=== PATIENT | female | born 1985 | race Caucasian/White ===

== ENCOUNTER 2018-07-21 09:49 | Emergency (ER) | payer OTHER ==
[2018-07-21 10:09] VITALS: BP 128/92; PULSE 55; TEMP 98.8
--- NOTE | 2018-07-21 10:27 | PDOC ---
History of Present Illness - General Chief Complaint: Pain Stated Complaint: LEFT KNEE PAIN Time Seen by Provider: 07/21/18 10:06 - History of Present Illness Initial Comments: 07/21/18 12:12 Chief complaint: Left knee pain History of present illness: Patient slipped on a wet floor approximately 3 weeks ago, injuring her left knee. It remains painful, swollen, and bruised. She is unable to fully bear weight and is using crutches. She was seen initially at another hospital, x-rays were reportedly negative, but she has not followed up as directed with an clutch specialist. Review of systems: Denies any other injuries or pain. 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 Pancreatitis. Anemia. Thrombocytopenia. Prior head injury and subsequent "coma" Breast reduction. Alcohol and drug problems. 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 Active and without disability except for her knee injury. No anxiety or depression Family history: Reviewed and noncontributory including early coronary artery disease, metabolic diseases including diabetes, cancer Physical exam: Alert and oriented well-developed well-nourished no acute distress cooperative Afebrile, vital signs normal No pallor or icterus No other sign of trauma except to the left knee. There is point tenderness over the lateral tibial plateau, with extensive ecchymoses that appear old. There is no swelling or effusion. There is no appreciable deformity. Extension is full, but the patient refuses to fully flex due to pain. Distal pulses full. No distal sensory or motor deficits. No sign of trauma to the thigh or distal calf Impression: Possible occult tibial plateau fracture, considering the extent of pain and bruising. Examination does not show a ligament injury. Plan: X-ray, analgesics, and further evaluation depending on results. Orthopedist referral. Past History - Past Medical History Allergies/Adverse Reactions: Allergies Allergy/AdvReac Type Severity Reaction Status Date / Time Penicillins Allergy Intermediate Rash Verified 07/21/18 09:51 Home Medications: Ambulatory Orders Ferrous Sulfate [Iron] 325 mg PO DAILY 07/21/18 Folic Acid 1 mg PO DAILY 07/21/18 Gabapentin 800 mg PO QID 07/21/18 Oxycodone HCl/Acetaminophen [Percocet 10-325 mg Tablet] 1 each PO Q4HWA PRN #10 tablet MDD 4 07/21/18 Quetiapine Fumarate [Seroquel] 100 tab PO HS 07/21/18 hydrOXYzine PAMOATE [Vistaril -] 50 mg PO QID 07/21/18 Anemia: Yes Asthma: No Cancer: No Cardiac Disorders: No CVA: No COPD: No CHF: No Dementia: No Diabetes: No GI Disorders: Yes (GERD) Disorders: No HTN: No Hypercholesterolemia: No Kidney Stones: Yes Liver Disease: No Seizures: No Thyroid Disease: No Other medical history: HEAD INJURY - Surgical History Abdominal Surgery: Yes (2.5 years AGO FOR SMA Dr. Kolb) Appendectomy: No Cardiac Surgery: No Cholecystectomy: No Lung Surgery: No Neurologic Surgery: No Orthopedic Surgery: No - Immunization History Td Vaccination: Yes Immunization Up to Date: No - Suicide/Smoking/Psychosocial Hx Smoking Status: No Smoking History: Never smoked Have you smoked in the past 12 months: No Number of Cigarettes Smoked Daily: 0 Information on smoking cessation initiated: No Hx Alcohol Use: No Drug/Substance Use Hx: No Substance Use Type: None Hx Substance Use Treatment: No *Physical Exam - Vital Signs Last Vital Signs Temp Pulse Resp BP Pulse Ox 98.8 F 55 L 16 128/92 98 07/21/18 09:50 07/21/18 09:50 07/21/18 09:50 07/21/18 09:50 07/21/18 09:50 Moderate Sedation - Procedure Monitoring Vital Signs: Procedure Monitoring Vital Signs Temperature 98.8 F 07/21/18 09:50 Pulse Rate 55 L 07/21/18 09:50 Respiratory Rate 16 07/21/18 09:50 Blood Pressure 128/92 07/21/18 09:50 O2 Sat by Pulse Oximetry (%) 98 07/21/18 09:50 ED Treatment Course - LABORATORY CBC & Chemistry Diagram: 07/21/18 11:10 07/21/18 11:10 Medical Decision Making - Medical Decision Making 07/21/18 16:43 X-rays negative for fracture Ultrasound negative for DVT or raines's cyst Patient seen by Dr. Thomas in the emergency room, orthopedic consult. He examine the knee and feels that it is a traumatic bursitis with bleeding into the bursa. He feels infection is unlikely, but close observation is warranted. He will see the patient on Tuesday for follow-up. Robb bandage was applied. Knee immobilizer was placed and the patient was more comfortable. There was no distal numbness or tingling and pulses were full, with good capillary refill in the foot Crutches and nonweightbearing until orthopedic follow-up. Discharged adequately ambulatory with mother to see Dr. Thomas on Tuesday as directed or return to emergency room if swelling becomes more pronounced or erythema or bruising migrate upward down the leg. *DC/Admit/Observation/Transfer Diagnosis at time of Disposition: Knee sprain Qualifiers: Encounter type: initial encounter Involved ligament of knee: unspecified ligament Laterality: left Qualified Code(s): S83.92XA - Sprain of unspecified site of left knee, initial encounter - Discharge Dispostion Disposition: HOME Condition at time of disposition: Improved Decision to Admit order: No - Prescriptions Prescriptions: Oxycodone HCl/Acetaminophen [Percocet 10-325 mg Tablet] 1 each PO Q4HWA PRN #10 tablet MDD 4 PRN Reason: Severe Pain - Referrals - Patient Instructions Printed Discharge Instructions: How to Use an Elastic Bandage-Knee Sprain, DI for Knee Sprain, How to Use a Knee Immobilizer - Post Discharge Activity Forms/Work/School Notes: Back to Work
[2018-07-21] MEDS ORDERED: KETOROLAC TROMETHAMINE 60 MG/2 ML VIAL IM ONE (10:42)
[2018-07-21] MEDS ORDERED: KETOROLAC TROMETHAMINE 60 MG/2 ML VIAL ONE (10:48)
[2018-07-21 11:48] LABS: BASO % 0.3 % (0-2.0); EOS % 1.9 % (0-4.5); HEMATOCRIT 41.9 % (32.4-45.2); HEMOGLOBIN 13.1 GM/dl (10.7-15.3); LYMPH % 25.3 % (8-40); MCH 26.8 pg (25.7-33.7); MCHC 31.4 g/dl (32.0-36.0); MEAN CELL VOLUME 85.4 fl (80-96); MEAN PLT VOLUME 8.4 fl (7.5-11.1); MONO % 5.8 % (3.8-10.2); NEUT % 66.7 % (42.8-82.8); PLATELET COUNT 126 K/MM3 (134-434); RBC 4.91 M/mm3 (3.60-5.2); RDW 14.7 % (11.6-15.6)
[2018-07-21 11:58] LABS: ALBUMIN 4.4 g/dl (3.4-5.0); ALK PHOS 62 U/L (45-117); ANION GAP 7 MMOL/L (8-16); BILIRUBIN,TOTAL 0.7 mg/dl (0.2-1); BLOOD UREA NITROGEN 20 mg/dl (7-18); CALCIUM 9.3 mg/dl (8.5-10); CHLORIDE 106 mmol/L (98-107); CO2 23 mmol/L (21-32); CREATININE 0.9 mg/dl (0.55-1.3); GLUCOSE,RANDOM 84 mg/dl (74-106); POTASSIUM 4.6 mmol/L (3.5-5.1); SGOT/AST 28 U/L (15-37); SGPT/ALT 26 U/L (13-61); SODIUM 136 mmol/L (136-145); TOT PROT 7.5 g/dl (6.4-8.2)
[2018-07-21 12:58] LABS: LIPASE 77 U/L (73-393)
--- NOTE | 2018-07-21 18:44 | PDOC ---
Patient Follow-up (Call Back) - Post ED Follow - Up Condition at time of discharge: Improved Disposition at time of original discharge: HOME - Disposition Additional Instructions/Notes: Patient phoned and states that her prescription was sent to the wrong pharmacy Called [facility] in [place] and spoke to the pharmacist Nico who agreed to cancel the prescription and the new prescription was sent to [facility] for Percocet 5/325 15 tabs.
--- NOTE | 2018-07-24 08:43 | CON.ORTH ---
Consult Consult Specialty:: orthopedics Reason for Consultation:: knee pain and swelling - History of Present Illness History of Present Illness: Wilma is a 33-year-old female who presented to the emergency department complaining of increasing knee pain. 3 weeks ago, she had slipped, injuring the left knee. She was seen in another emergency facility where x-rays were taken which she reports were negative. Today, she comes in with increased pain and swelling. The pain and swelling are anterolateral. She denies any radiating pain, numbness or tingling. She denies any eloisa giving way. She does have pain with ambulation. She did not obtain any follow-up after her last ER visit. She also denies any fevers, chills. - History Source History Provided By: Patient, Medical Record Limitations to Obtaining History: No Limitations - Past Medical History [employer]: Yes: Seizure Pulmonary: Yes: Pneumonia, Other (EFFUSION IN THE PAST/POSSIBLE ATELECTASIS) Gastrointestinal: Yes: GERD, Hiatal Hernia, Pancreatitis, Other (ARCUATE LIGAMENT SYNDROME) Renal/: Yes: Renal Calculi ...LMP: 03/06/15 Infectious Disease: Yes: Other (SEPSIS FROM HEMATOMA OF THE LEFT HAND AFTER I&D AT [facility] 7 WEEKS. HAD PNEUMONAI AND SEPSIS WITH INDUCED COMA ETC.. ) Psych: Yes: Other (FROM [facility] COMPUTER DISCHARGE SUMMARY DX: ALCOHOLIC WITHDRAWAL ) - Alcohol/Substance Use Hx Alcohol Use: No - Smoking History Smoking history: Never smoked Have you smoked in the past 12 months: No Aproximately how many cigarettes per day: 0 - Social History Usual Living Arrangement: With Parent Home Medications - Allergies Allergies/Adverse Reactions: Allergies Allergy/AdvReac Type Severity Reaction Status Date / Time Penicillins Allergy Intermediate Rash Verified 07/21/18 09:51 - Home Medications Home Medications: Ambulatory Orders Ferrous Sulfate [Iron] 325 mg PO DAILY 07/21/18 Folic Acid 1 mg PO DAILY 07/21/18 Gabapentin 800 mg PO QID 07/21/18 Oxycodone HCl/Acetaminophen [Percocet 5-325 mg Tablet] 1 - 2 tab PO Q4H PRN #15 tablet MDD 6 07/21/18 Quetiapine Fumarate [Seroquel] 100 tab PO HS 07/21/18 hydrOXYzine PAMOATE [Vistaril -] 50 mg PO QID 03/01/19 Review of Systems - Review of Systems Constitutional: denies: Chills, Diaphoresis, Fever Physical Exam for Ortho Vital Signs: Vital Signs Temperature 98.8 F 07/21/18 09:50 Pulse Rate 55 L 07/21/18 09:50 Respiratory Rate 16 07/21/18 09:50 Blood Pressure 128/92 07/21/18 09:50 O2 Sat by Pulse Oximetry (%) 98 07/21/18 09:50 Constitutional: Yes: Well Nourished, No Distress, Calm Labs: CBC, BMP 07/21/18 11:10 07/21/18 11:10 - Lower Extremity Knee: Yes: Left, Ecchymosis, Swelling (anterolaterally over the bursa), Other ( Range of motion 5 to 100.). No: Abrasion, Deformity, Erythema - Affected Extremity Motor Strength: 5/5: Right Leg Peripheral Pulses WNL: Yes Neuro/Vascular Assessment: Yes: Normal Sensation Imaging - Results X-ray: Report Reviewed, Image Reviewed (No acute pathology.) Problem List - Problems (1) Knee sprain Assessment/Plan: I discussed today's findings with Wilma. Her exam today is suggestive of a traumatic bursitis. There is no evidence for infection at this time. She will use compression, protected weightbearing and rest. I would like to examine her in the office next week. We may consider MRI to evaluate for the extent of damage caused by her previous fall. Code(s): S83.90XA - SPRAIN OF UNSPECIFIED SITE OF UNSPECIFIED KNEE, INIT ENCNTR Qualifiers: Encounter type: initial encounter Involved ligament of knee: other ligament Laterality: left Qualified Code(s): S83.8X2A - Sprain of other specified parts of left knee, initial encounter
== END 2018-07-21 16:48 | disposition home or self-care (01) ==
LOC: FER 09:49
PROC: 2W3RX1Z Immobilization of Left Lower Leg using Splint (ICD-10-PCS; principal; 2018-07-21)
PROC: 3E0233Z Introduction of Anti-inflammatory into Muscle, Percutaneous Approach (ICD-10-PCS; 2018-07-21)
DX: S83.92XA Sprain of unspecified site of left knee, initial encounter (principal); X58.XXXA Exposure to other specified factors, initial encounter; Y93.89 Activity, other specified; Y92.89 Other specified places as the place of occurrence of the external cause
CPT/HCPCS: 29515; 36415; 73562-TC-LT-FY; 80053; 82150; 83690; 84703; 85025; 93971-TC; 96372; 99283-25

== ENCOUNTER 2018-09-05 11:06 | Emergency (ER) | payer SELFPAY ==
[2018-09-05 11:10] VITALS: BP 116/79; PULSE 88; TEMP 98.4; BMI 21.2
[2018-09-05] MEDS ORDERED: KETOROLAC TROMETHAMINE 60 MG/2 ML VIAL IM ONE (11:48)
[2018-09-05] MEDS ORDERED: KETOROLAC TROMETHAMINE 60 MG/2 ML VIAL ONE (11:51)
[2018-09-05] MEDS ORDERED: GABAPENTIN 300 MG CAPSULE (FP) PO ONE (12:48)
[2018-09-05] MEDS ORDERED: predniSONE 20 MG TABLET (UD) PO ONE (12:48)
--- NOTE | 2018-09-05 12:53 | PDOC ---
History of Present Illness <Erlin Gupta - Last Filed: 09/05/18 13:50> - History of Present Illness Initial Comments: 09/05/18 12:49 33f with pmh of sma repair and alcohol abuse and various psych disorders in the past presents to the ed for b/l lower extremity pain since 2am this morning. The pain is localized over the dorsal aspect of both legs. She's able to stand but the pain makes it difficult. \\She states that her legs a tender to the touch. She took an oxycodon this morning which didn't help. She's usually on gabapentin for "anxiety" The patient states that she fell on July 21 and has been wearing a knee immobilizer since then. Denies swelling, rash recent trauma. 09/05/18 14:13 Denies back pain. Patient sitting at a 90 degree angle. <William Estes - Last Filed: 09/05/18 14:23> - General Chief Complaint: Pain, Acute Stated Complaint: BILATERAL KNEE PAIN Time Seen by Provider: 09/05/18 11:25 Past History <Erlin Gupta - Last Filed: 09/05/18 13:50> - Past Medical History Anemia: Yes Asthma: No Cancer: No Cardiac Disorders: No CVA: No COPD: No CHF: No Dementia: No Diabetes: No GI Disorders: Yes (GERD) Disorders: No HTN: No Hypercholesterolemia: No Kidney Stones: Yes Liver Disease: No Seizures: No Thyroid Disease: No - Surgical History Abdominal Surgery: Yes (2.5 years AGO FOR SMA Dr. Kolb) Appendectomy: No Cardiac Surgery: No Cholecystectomy: No Lung Surgery: No Neurologic Surgery: No Orthopedic Surgery: No - Immunization History Td Vaccination: Yes Immunization Up to Date: No - Suicide/Smoking/Psychosocial Hx Smoking Status: No Smoking History: Never smoked Have you smoked in the past 12 months: No Number of Cigarettes Smoked Daily: 0 Hx Alcohol Use: No Drug/Substance Use Hx: No Substance Use Type: None Hx Substance Use Treatment: No <William Estes - Last Filed: 09/05/18 14:23> - Past Medical History Allergies/Adverse Reactions: Allergies Allergy/AdvReac Type Severity Reaction Status Date / Time Penicillins Allergy Intermediate Rash Verified 09/05/18 11:58 Home Medications: Ambulatory Orders Ferrous Sulfate [Iron] 325 mg PO DAILY 07/21/18 Folic Acid 1 mg PO DAILY 07/21/18 Quetiapine Fumarate [Seroquel] 100 tab PO HS 07/21/18 hydrOXYzine PAMOATE [Vistaril -] 50 mg PO QID 07/21/18 Gabapentin 800 mg PO QID #60 tablet 09/05/18 Oxycodone HCl/Acetaminophen [Percocet 5-325 mg Tablet] 1 - 2 tab PO TID PRN #15 tablet MDD 6 tabs 09/05/18 Prednisone [Prednisone 50 MG TABLETS] 50 mg PO DAILY #6 tablet 09/05/18 Review of Systems - Review of Systems Able to Perform ROS?: Yes Is the patient limited Indonesian proficient: No Constitutional: No: Symptoms Reported HEENTM: No: Symptoms Reported Respiratory: No: Symptoms reported Cardiac (ROS): No: Symptoms Reported ABD/GI: No: Symptoms Reported Musculoskeletal: Yes: See HPI Integumentary: No: Symptoms Reported Neurological: No: Symptoms reported All Other Systems: Reviewed and Negative <William Estes - Last Filed: 09/05/18 14:23> *Physical Exam - Vital Signs Last Vital Signs Temp Pulse Resp BP Pulse Ox 98.4 F 88 18 116/79 98 09/05/18 11:06 09/05/18 11:06 09/05/18 11:06 09/05/18 11:06 09/05/18 11:06 <Erlin Gupta - Last Filed: 09/05/18 13:50> - Vital Signs Last Vital Signs Temp Pulse Resp BP Pulse Ox 98.4 F 88 18 116/79 98 09/05/18 11:06 09/05/18 11:06 09/05/18 11:06 09/05/18 11:06 09/05/18 11:06 - Physical Exam General Appearance: Yes: Nourished, Appropriately Dressed. No: Apparent Distress HEENT: positive: EOMI, DEVYN, Normal ENT Inspection Respiratory/Chest: positive: Lungs Clear, Normal Breath Sounds. negative: Chest Tender, Respiratory Distress Cardiovascular: positive: Regular Rhythm, Regular Rate, S1, S2 Gastrointestinal/Abdominal: positive: Normal Bowel Sounds, Soft Musculoskeletal: positive: Other (No back pain. ) Extremity: positive: Other (Variuous round, scaly concentric squamous lesions b/ l from the legs to the feet. No evidence pustules or cellulitis. ) <William Estes - Last Filed: 09/05/18 14:23> ED Treatment Course - Medications Given in the ED: ED Medications Discontinued Medications Generic Name Dose Route Start Last Admin Trade Name Freq PRN Reason Stop Dose Admin Gabapentin 600 mg 09/05/18 12:48 09/05/18 12:59 Neurontin - PO 09/05/18 12:49 600 mg ONCE ONE Administration Oxycodone/Acetaminophen 1 combo 09/05/18 11:48 09/05/18 11:53 Percocet 5/325 - PO 09/05/18 11:49 1 combo ONCE ONE Administration Oxycodone/Acetaminophen 1 combo 09/05/18 12:48 09/05/18 12:59 Percocet 5/325 - PO 09/05/18 12:49 1 combo ONCE ONE Administration Prednisone 60 mg 09/05/18 12:48 09/05/18 12:59 Deltasone - PO 09/05/18 12:49 60 mg ONCE ONE Administration <Erlin Gupta - Last Filed: 09/05/18 13:50> - Medications Given in the ED: ED Medications Discontinued Medications Generic Name Dose Route Start Last Admin Trade Name Freq PRN Reason Stop Dose Admin Oxycodone/Acetaminophen 1 combo 09/05/18 11:48 09/05/18 11:53 Percocet 5/325 - PO 09/05/18 11:49 1 combo ONCE ONE Administration <William Estes - Last Filed: 09/05/18 14:23> Medical Decision Making - Medical Decision Making 09/05/18 14:17 Due to the b/l presentation of the symptoms, (bilateral, no back pain, only tender over the dorsal aspect of the legs) we have a low suspicion for zoster, transverse myelitis, discitis. This is possibly related to the multiple previous psych visits ([facility]?) Will treat pain with the patient's dose of gabapentin, toradol and percocet and reassess. Patient fells better and ambulates without pain. Ok to discharge with follow up. <William Estes - Last Filed: 09/05/18 14:23> *DC/Admit/Observation/Transfer <Erlin Gupta - Last Filed: 09/05/18 13:50> <William Estes - Last Filed: 09/05/18 14:23> Diagnosis at time of Disposition: Lumbar radiculopathy, acute - Discharge Dispostion Condition at time of disposition: Stable - Prescriptions Prescriptions: Gabapentin 800 mg PO QID #60 tablet Oxycodone HCl/Acetaminophen [Percocet 5-325 mg Tablet] 1 - 2 tab PO TID PRN #15 tablet MDD 6 tabs PRN Reason: Severe Pain Prednisone [Prednisone 50 MG TABLETS] 50 mg PO DAILY #6 tablet - Referrals Referrals: Roger Thomas MD [Staff Physician] - Willard Myles MD [Staff Physician] - - Patient Instructions Printed Discharge Instructions: DI for Leg Pain, DI for Lumbar Radiculopathy Additional Instructions: Activity as tolerated. Stay hydrated. Your symptoms could be consistent with a nerve source (radiculopathy). You were given pain medicine and steroids to improve the symptoms. Take prednisone as prescribed, continue percocet as prescribed as needed for pain (a refill was sent to [facility] pharmacy). Tylenol 1000 mg every 8 hours and/or ibuprofen 600 mg every 8 hours as needed for moderate pain. Continue your medications as previously prescribed by your physician. You should follow up with Dr. Thomas as scheduled regarding today's emergency department visit. Call the office to see if you can also be evaluated by Dr. Myles , a customs compliance specialist. If symptoms persist, an MRI may be needed to further identify the cause. Return to the emergency department for any new or concerning symptoms, particularly persistent or intolerable pain, numbness or weakness, bowel/ bladder issues, fever/chills.
[2018-09-05] MEDS ORDERED: GABAPENTIN 300 MG CAPSULE (FP) ONE (12:57)
[2018-09-05] MEDS ORDERED: predniSONE 20 MG TABLET (UD) ONE (12:57)
--- NOTE | 2018-09-05 13:10 | PDOC ---
Attending Attestation - Resident Resident Name: William Estes - ED Attending Attestation I have performed the following: I have examined & evaluated the patient, The case was reviewed & discussed with the resident, I agree w/resident's findings & plan - HPI HPI: 09/05/18 13:01 33y/o F h/o SMA syndrome, pna sepsis, anxiety, recent L knee injury with post- traumatic bursitis seen on 07/21/18 and receiving f/u with Dr. Thomas of orthopedics, now p/w acute onset of b/l lower leg pain that awoke her from sleep at 3am. Pt in usky, was awoken from sleep by sharp constant pain radiating from both anterior mid-thighs distally to dorsal/medial aspect of both feet. no motor/sensory deficit, but pain worse with movement. Took previously prescribed percocet without relief, presents for evaluation. no f/c, no bowel/bladder issues. denies back pain or injury. no h/o disc herniation or spine MRI - Physicial Exam PE: 09/05/18 13:03 VSS well appearing lying in stretcher no spine ttp, seated in full hip flexion no deformity/swelling/erythema/warmth, no bony abnormality or ttp. 5/5 flex/ extend of b/l hips/knees/ankles/toes. 2+ distal pulses b/l. sensory intact. no rash. healing excoriations to lower legs/lateral ankles without evidence of infection - Medical Decision Making 09/05/18 13:04 33y/o F h/o unclear pain syndromes, anxiety p/w atraumatic b/l lower leg pain, seemingly in L4 distribution, but NVI. no evidence of vascular/infectious/ musculoskeletal etiology, ? sensory radiculopathy but no back pain. given toradol and percocet without relief add 2nd percocet, scheduled dose of gabapentin, and prednisone no indication for emergent imaging, no suspicion for cord compression or more proximal cord process reassess after meds, has f/u with Dr. Thomas and could also see Dr. Myles as graves registration specialist 09/05/18 13:49 now ambulating after last group of medications. Feels much better, remains nvi. Agrees with d/c plan on steroids and percocet prn, will work on arranging to see Dr. Myles upon her next visit with Dr. Thomas. Understands return criteria. Needed refill of her gabapentin also, which was sent
== END 2018-09-05 14:22 | disposition home or self-care (01) ==
LOC: FER 11:06
PROC: 3E0233Z Introduction of Anti-inflammatory into Muscle, Percutaneous Approach (ICD-10-PCS; principal; 2018-09-05)
DX: M54.16 Radiculopathy, lumbar region (principal); K21.9 Gastro-esophageal reflux disease without esophagitis; Z87.442 Personal history of urinary calculi
CPT/HCPCS: 99281-25

== ENCOUNTER 2018-09-20 14:40 | Emergency (ER) | payer OTHER ==
[2018-09-20 14:51] VITALS: BP 112/80; PULSE 89; TEMP 97.7; BMI 21.2
--- NOTE | 2018-09-20 14:51 | PDOC ---
Rapid Medical Evaluation Time Seen by Provider: 09/20/18 14:45 Medical Evaluation: Allergies Allergy/AdvReac Type Severity Reaction Status Date / Time Penicillins Allergy Intermediate Rash Verified 09/05/18 11:58 09/20/18 14:48 I have performed a brief in-person evaluation of this patient. The patient presents with a chief complaint of: Facial lac after poked in L eyebrow w/ piece of wood this am, no eye pain/redness/fb sensation/visual change. Was seen in UC and sent to ED for unclear reasons. Pt's tetanus is UTD. H/o anemia Pertinent physical exam findings:superficial abrasion to L eyebrow I have ordered the following:nothing The patient will proceed to the ED for further evaluation. Discharge Disposition - Diagnosis Facial laceration Qualifiers: Encounter type: initial encounter Qualified Code(s): S01.81XA - Laceration without foreign body of other part of head, initial encounter - Referrals - Patient Instructions - Post Discharge Activity
--- NOTE | 2018-09-20 16:22 | PDOC ---
History of Present Illness - General Chief Complaint: Laceration Stated Complaint: Abrasion over the Left eye Time Seen by Provider: 09/20/18 14:45 History Source: Patient Exam Limitations: No Limitations Past History - Travel Traveled outside of the country in the last 30 days: No Close contact w/someone who was outside of country & ill: No - Past Medical History Allergies/Adverse Reactions: Allergies Allergy/AdvReac Type Severity Reaction Status Date / Time Penicillins Allergy Intermediate Rash Verified 09/05/18 11:58 Home Medications: Ambulatory Orders Ferrous Sulfate [Iron] 325 mg PO DAILY 07/21/18 Folic Acid 1 mg PO DAILY 07/21/18 Quetiapine Fumarate [Seroquel] 100 tab PO HS 07/21/18 hydrOXYzine PAMOATE [Vistaril -] 50 mg PO QID 07/21/18 Gabapentin 800 mg PO QID #60 tablet 09/05/18 Oxycodone HCl/Acetaminophen [Percocet 5-325 mg Tablet] 1 - 2 tab PO TID PRN #15 tablet MDD 6 tabs 09/05/18 Prednisone [Prednisone 50 MG TABLETS] 50 mg PO DAILY #6 tablet 09/05/18 Anemia: Yes Asthma: No Cancer: No Cardiac Disorders: No CVA: No COPD: No CHF: No Dementia: No Diabetes: No GI Disorders: Yes (GERD) Disorders: No HTN: No Hypercholesterolemia: No Kidney Stones: Yes Liver Disease: No Seizures: No Thyroid Disease: No - Surgical History Abdominal Surgery: Yes (2.5 years AGO FOR [facility] [place]) Appendectomy: No Cardiac Surgery: No Cholecystectomy: No Lung Surgery: No Neurologic Surgery: No Orthopedic Surgery: No - Immunization History Td Vaccination: Yes Immunization Up to Date: No - Suicide/Smoking/Psychosocial Hx Smoking Status: No Smoking History: Unknown if ever smoked Have you smoked in the past 12 months: No Number of Cigarettes Smoked Daily: 0 Hx Alcohol Use: No Drug/Substance Use Hx: No Substance Use Type: None Hx Substance Use Treatment: No Review of Systems - Review of Systems Able to Perform ROS?: Yes Comments:: 09/20/18 16:18 CONSTITUTIONAL: Absent: fever, chills, diaphoresis, generalized weakness, malaise, loss of appetite HEENT: Absent: rhinorrhea, nasal congestion, throat pain, throat swelling, difficulty swallowing, mouth swelling, ear pain, eye pain, visual Changes CARDIOVASCULAR: Absent: chest pain, loss of consciousness, palpitations, irregular heart rate, peripheral edema SKIN: Present: cut and brusing over L eye. Absent: rash, itching, pallor HEMATOLOGIC/IMMUNOLOGIC: Absent: easy bleeding, easy bruising, lymphadenopathy, frequent infections NEUROLOGIC: Absent: headache, focal weakness or paresthesias, dizziness, unsteady gait, seizure, mental status changes, bladder or bowel incontinence Is the patient limited Lithuanian proficient: No *Physical Exam - Vital Signs Last Vital Signs Temp Pulse Resp BP Pulse Ox 97.7 F 89 20 112/80 99 09/20/18 14:46 09/20/18 14:46 09/20/18 14:46 09/20/18 14:46 09/20/18 14:46 - Physical Exam Comments: 09/20/18 16:19 GENERAL: Well developed, well nourished. Awake and alert. No acute distress. HEENT: Normocephalic, atraumatic. PERRLA, EOMI. No conjunctival pallor. Sclera are non- icteric. Moist mucous membranes. Oropharynx is clear. NECK: Supple. Full ROM. No JVD. Carotid pulses 2+ and symmetric, without bruits. No thyromegaly. No lymphadenopathy. SKIN: 1cm linear superficial laceration to the L lateral eyebrow with associated bruising/swelling. Splinter present in the wound. Warm and dry. Normal capillary refill. No rashes. No jaundice. NEUROLOGICAL: Alert, awake, appropriate. Cranial nerves 2-12 intact. No deficits to light touch and temperature in face, upper extremities and lower extremities. No motor deficits in the in face, upper extremities and lower extremities. Normoreflexic in the upper and lower extremities. Normal speech. Toes are down- going bilaterally. Gait is normal without ataxia. PSYCHIATRIC: Cooperative. Good eye contact. Appropriate mood and affect Procedures - Laceration/Wound Repair Left Upper Eye Wound Length: to 2.5 cm Wound Explored: foreign body removed (splinter) Wound's Depth, Shape: superficial, linear Irrigated w/ Saline: Yes Betadine Prep: No Wound Repaired With: Dermabond Medical Decision Making - Medical Decision Making 09/20/18 16:34 the patient is a 33-year-old female with no past medical history, who presents to the ER today for a laceration over her left eye. Patient states that she was walking up a flight of steps when she pulled on the spindle of a banister. She states that the spindle came loose and hit her in the left upper eye. She noticed that it started bleeding so she came to the emergency department. Denies visual changes, spots/floaters, eye pain, loss of consciousness, dizziness and lightheadedness. A/P: Laceration Superficial left 1 cm linear laceration above the left upper eyelid. The wound was explored for foreign bodies and a 0.05 cm splinter was found and extracted. The wound was further explored for foreign bodies and none were found. The wound was then cleaned and prepared under sterile conditions. Dermabond was applied. Patient instructed to keep the wound clean and dry. Discharge home with primary care follow-up. I discussed the physical exam findings, ancillary test results and final diagnoses with the patient. I answered all of the patient's questions. The patient was satisfied with the care received and felt comfortable with the discharge plan and treatment plan. The Patient agrees to follow up with the primary care physician/specialist within 24-72 hours. Return precautions were given. *DC/Admit/Observation/Transfer Diagnosis at time of Disposition: Facial laceration Qualifiers: Encounter type: initial encounter Qualified Code(s): S01.81XA - Laceration without foreign body of other part of head, initial encounter - Discharge Dispostion Disposition: HOME Condition at time of disposition: Stable Decision to Admit order: No - Referrals Referrals: Lars Vidales MD [Staff Physician] - - Patient Instructions Printed Discharge Instructions: DI for Laceration Repair With Dermabond Additional Instructions: You were evaluated for the cut above your eye It was cleaned and dermabond was placed over it Keep the area clean and dry for 24 hours Pat dry when washing your face The glue will fall off on its own in 3-4 days You may take Tylenol or Motrin as needed for pain. Follow the manufacture's instructions Return to the ER for worsening pain, fever, purulent drainage, or if you have any changes in your symptoms - Post Discharge Activity Forms/Work/School Notes: Back to Work
== END 2018-09-20 16:24 | disposition home or self-care (01) ==
LOC: JERFT 14:40
PROC: 0HQ1XZZ Repair Face Skin, External Approach (ICD-10-PCS; principal; 2018-09-20)
DX: S01.81XA Laceration without foreign body of other part of head, initial encounter (principal); K21.9 Gastro-esophageal reflux disease without esophagitis; N20.0 Calculus of kidney; X58.XXXA Exposure to other specified factors, initial encounter; Y93.89 Activity, other specified; Y92.89 Other specified places as the place of occurrence of the external cause
CPT/HCPCS: 12011-25; 99281-25

== ENCOUNTER 2020-07-19 23:34 | Inpatient (IN) | payer OTHER ==
[2020-07-20 01:16] LABS: VENOUS BASE EXCESS -1.4 mmol/L (-2-2); VENOUS O2 SATURATION 88.8 % (70-80); VENOUS PCO2 38.2 mmHg (38-52); VENOUS PH 7.399 (7.310-7.410)
[2020-07-20 01:25] LABS: BASO % 0.3 % (0-2.0); HEMATOCRIT 40.8 % (32.4-45.2); HEMOGLOBIN 12.8 GM/dL (10.7-15.3); LYMPH % 27.5 % (8-40); MCH 22.8 pg (25.7-33.7); MCHC 31.4 g/dl (32.0-36.0); MEAN CELL VOLUME 72.8 fl (80-96); MEAN PLT VOLUME 8.4 fl (7.5-11.1); MONO % 13.5 % (3.8-10.2); NEUT % 58.7 % (42.8-82.8); PLATELET COUNT 164 K/MM3 (134-434); RDW 25.1 % (11.6-15.6); WHITE BLOOD COUNT 6.7 K/mm3 (4.0-10.0)
[2020-07-20 02:12] LABS: CALCIUM 9.5 mg/dL (8.5-10.1)
[2020-07-20 02:13] LABS: ALBUMIN 4.1 g/dl (3.4-5.0); BLOOD UREA NITROGEN 6.6 mg/dL (7-18); CO2 24 mmol/L (21-32); GLUCOSE,RANDOM 142 mg/dL (74-106); MAGNESIUM 2.6 mg/dL (1.8-2.4)
[2020-07-20 02:15] LABS: SGOT/AST 181 U/L (15-37); SGPT/ALT 149 U/L (13-61)
[2020-07-20 02:16] LABS: CREATININE 2.1 mg/dL (0.55-1.3); PHOSPHOROUS 2.5 mg/dL (2.5-4.9)
[2020-07-20] MEDS ORDERED: LACTATED RINGERS SOLUTION 1000 ML INFUS.BAG IV ONE ×2 (02:16→05:09)
[2020-07-20 02:17] LABS: BILIRUBIN,TOTAL 0.3 mg/dL (0.2-1); TOT PROT 7.6 g/dl (6.4-8.2)
[2020-07-20 02:18] LABS: ALK PHOS 122 U/L (45-117)
[2020-07-20 02:23] LABS: INR 0.83 (0.83-1.09); PROTHROMBIN TIME (PATIENT) 10.1 SEC (9.7-13.0)
[2020-07-20 02:25] LABS: ACTIVATED PTT 25.7 SECONDS (25.2-36.5)
[2020-07-20 03:17] LABS: ANION GAP 10 MMOL/L (8-16); CHLORIDE 112 mmol/L (98-107); POTASSIUM 3.5 mmol/L (3.5-5.1); SODIUM 146 mmol/L (136-145)
[2020-07-20 04:23] LABS: ANISOCYTOSIS 2+; MACROCYTOSIS 0; PLATELET ESTIMATE DECREASED; ROULEAU 1+
[2020-07-20 04:50] LABS: PH,URINE 8.5 (5.0-8.0); URINE APPEARANCE CLEAR; URINE BILIRUBIN NEGATIVE (NEGATIVE); URINE COLOR YELLOW; URINE GLUCOSE (UA) NEGATIVE (NEGATIVE); URINE KETONE NEGATIVE (NEGATIVE); URINE LEUK ESTERASE NEGATIVE (NEGATIVE); URINE NITRITE NEGATIVE (NEGATIVE); URINE PROTEIN NEGATIVE (NEGATIVE); URINE UROBILINOGEN 0.2 mg/dL (0.2-1.0)
[2020-07-20] MEDS ORDERED: THIAMINE HCL 200 MG/2 ML VIAL IVPB ONE (05:09)
[2020-07-20 05:16] LABS: COCAINE, UR NEGATIVE ng/ml (CUTOFF=300); METHADONE, UR NEGATIVE ng/ml (CUTOFF=300); OPIATES, URI NEGATIVE ng/ml (CUTOFF=300)
[2020-07-20 05:17] LABS: PHENCYCLIDINE,URINE NEGATIVE ng/ml (CUTOFF=25)
[2020-07-20] MEDS ORDERED: THIAMINE HCL 200 MG/2 ML VIAL ONE (05:22)
[2020-07-20 05:59] LABS: URINE AMPHETAMINES NEGATIVE ng/ml (CUTOFF=500); URINE BARBITURATES NEGATIVE ng/ml (CUTOFF=200)
[2020-07-20 06:02] LABS: URINE BENZODIAZEPINES POSITIVE ng/ml (CUTOFF=200)
[2020-07-20] MEDS ORDERED: FOLIC ACID INJECTION - 1 MG, THIAMINE HCL 100 MG, MULTIVIT INJECTION ADULT 10 ML in SOD... IVPB ONE (07:30)
[2020-07-20] MEDS ORDERED: LORazepam 2 MG/ML SDV VIAL IVPUSH PRN (10:25)
[2020-07-20 11:54] LABS: BASO % 0.3 % (0-2.0); LYMPH % 34.3 % (8-40); MCH 22.7 pg (25.7-33.7); MCHC 31.3 g/dl (32.0-36.0); MEAN CELL VOLUME 72.5 fl (80-96); MEAN PLT VOLUME 8.4 fl (7.5-11.1); MONO % 12.7 % (3.8-10.2); NEUT % 52.7 % (42.8-82.8); PLATELET COUNT 121 K/MM3 (134-434); RBC 4.41 M/mm3 (3.60-5.2); RDW 24.7 % (11.6-15.6); WHITE BLOOD COUNT 4.5 K/mm3 (4.0-10.0)
[2020-07-20 12:09] LABS: CALCIUM 8.3 mg/dL (8.5-10.1)
[2020-07-20 12:10] LABS: BLOOD UREA NITROGEN 7.4 mg/dL (7-18)
[2020-07-20 12:12] LABS: MAGNESIUM 1.9 mg/dL (1.8-2.4)
[2020-07-20 12:13] LABS: PHOSPHOROUS 2.7 mg/dL (2.5-4.9)
[2020-07-20 12:14] LABS: BILIRUBIN,TOTAL 0.4 mg/dL (0.2-1)
[2020-07-20 12:54] LABS: ALBUMIN 3.2 g/dl (3.4-5.0)
[2020-07-20 13:26] LABS: POTASSIUM 2.9 mmol/L (3.5-5.1)
[2020-07-20] MEDS ORDERED: POTASSIUM CHLORIDE TABS 20 MEQ TABLET.ER (FP) PO ONE ×2 (13:45→17:00)
[2020-07-20] MEDS ORDERED: POTASSIUM CHLORIDE 20 MEQ in LACTATED RINGERS SOLUTION 1,000 ML IVPB ONE (14:15)
[2020-07-20] MEDS: KCL 10 MEQ IVPB 10 MEQ/100 ML INFUS.BAG IVPB SCH ×3 (14:35→16:54)
[2020-07-20] MEDS ORDERED: KCL 10 MEQ IVPB 30 MEQ/300 ML INFUS.BAG IVPB ONE (14:36)
[2020-07-20] MEDS ORDERED: POTASSIUM CHLORIDE 10 MEQ in LACTATED RINGERS SOLUTION 1,000 ML IV ONE (15:00)
[2020-07-20] MEDS ORDERED: LORazepam 2 MG/ML SDV VIAL ONE (16:36)
[2020-07-20] MEDS ORDERED: FAMOTIDINE 20 MG/50 ML IVPB 20 MG/50 ML MG IVPB ONE (16:55)
[2020-07-20] MEDS ORDERED: FAMOTIDINE 20 MG/50 ML IVPB 20 MG/50 ML MG IVPB SCH ×2 (18:46→22:00)
[2020-07-20] MEDS ORDERED: MAG HYDROX/AL HYDROX/SIMETH 30 ML UNIT-DOSE CUP PO ONE (21:38)
[2020-07-20] MEDS ORDERED: MAG HYDROX/AL HYDROX/SIMETH 30 ML UNIT-DOSE CUP ONE (21:39)
[2020-07-20] MEDS ORDERED: MUPIROCIN 2% TOPICAL OINTMENT FOR DECOLONIZATION NS SCH (22:00)
[2020-07-20] MEDS ORDERED: CHLORHEXIDINE GLUCONATE 4% CLEANSER FOR DECOLONIZATION TP SCH (22:00)
[2020-07-20] MEDS ORDERED: MORPHINE SULFATE 2 MG/ML VIAL IVPUSH ONE (23:40)
[2020-07-21 00:56] VITALS: BMI 22.0
[2020-07-21] MEDS ORDERED: MORPHINE SULFATE 2 MG/ML VIAL IVPUSH ONE (04:35)
[2020-07-21 09:28] LABS: POTASSIUM 3.8 mmol/L (3.5-5.1)
[2020-07-21 09:37] LABS: BLOOD UREA NITROGEN 6.9 mg/dL (7-18)
[2020-07-21 09:38] LABS: BILIRUBIN,TOTAL 0.5 mg/dL (0.2-1); TOT PROT 5.6 g/dl (6.4-8.2)
[2020-07-21 09:40] LABS: CALCIUM 8.4 mg/dL (8.5-10.1); CREATININE 1.4 mg/dL (0.55-1.3)
[2020-07-21] MEDS ORDERED: morphine CARPU-JECT 2 MG/1 ML DISP.SYRIN IM PRN (10:28)
[2020-07-21] MEDS ORDERED: LORazepam 2 MG/ML SDV VIAL IVPUSH PRN (10:29)
[2020-07-21] MEDS: PANTOPRAZOLE SODIUM 40 MG VIAL IVPUSH SCH (11:30)
[2020-07-21] MEDS: MORPHINE SULFATE 2 MG/ML VIAL IVPUSH PRN ×2 (11:38→17:34)
[2020-07-21] MEDS ORDERED: SODIUM CHLORIDE 0.45%/POT 20 MEQ/1,000 ML INFUS.BAG IV SCH (15:00)
[2020-07-21] MEDS: diazePAM 5 MG TABLET PO SCH (21:26)
[2020-07-21] MEDS ORDERED: MORPHINE SULFATE 2 MG/ML VIAL IVPUSH PRN (21:56)
[2020-07-22] MEDS ORDERED: morphine CARPU-JECT 4 MG/1 ML DISP.SYRIN IVPUSH PRN (01:55)
[2020-07-22] MEDS ORDERED: oxyCODONE HCL 5 MG TABLET PO PRN (02:01)
[2020-07-22] MEDS ORDERED: oxyCODONE HCL 5 MG TABLET PO ONE (05:36)
[2020-07-22] MEDS: diazePAM 5 MG TABLET PO SCH ×3 (05:54→22:51)
[2020-07-22 08:44] LABS: HEMATOCRIT 31.7 % (32.4-45.2); HEMOGLOBIN 9.9 GM/dL (10.7-15.3); MCH 23.2 pg (25.7-33.7); MCHC 31.1 g/dl (32.0-36.0); MEAN CELL VOLUME 74.4 fl (80-96); MEAN PLT VOLUME 8.4 fl (7.5-11.1); PLATELET COUNT 94 K/MM3 (134-434); RBC 4.26 M/mm3 (3.60-5.2); RDW 25.9 % (11.6-15.6); WHITE BLOOD COUNT 3.6 K/mm3 (4.0-10.0)
[2020-07-22 09:04] LABS: POTASSIUM 3.9 mmol/L (3.5-5.1)
[2020-07-22 09:08] LABS: CALCIUM 8.6 mg/dL (8.5-10.1)
[2020-07-22 09:09] LABS: ALBUMIN 3.3 g/dl (3.4-5.0); BLOOD UREA NITROGEN 8.4 mg/dL (7-18); MAGNESIUM 2.3 mg/dL (1.8-2.4)
[2020-07-22 09:12] LABS: PHOSPHOROUS 2.2 mg/dL (2.5-4.9)
[2020-07-22 09:13] LABS: BILIRUBIN,TOTAL 1.2 mg/dL (0.2-1); TOT PROT 6.3 g/dl (6.4-8.2)
[2020-07-22] MEDS: PANTOPRAZOLE SODIUM 40 MG VIAL IVPUSH SCH (10:11)
[2020-07-22] MEDS ORDERED: SODIUM PHOSPHATE - 20 MM in SODIUM CHLORIDE 250 ML IVPB ONE (13:30)
[2020-07-22] MEDS ORDERED: PT OWN MED DRAWER 7, Y5N ONE (15:05)
[2020-07-23] MEDS: diazePAM 5 MG TABLET PO SCH ×3 (06:24→21:41)
[2020-07-23 09:28] LABS: BASO % 0.5 % (0-2.0); HEMOGLOBIN 10.1 GM/dL (10.7-15.3); LYMPH % 34.4 % (8-40); MCH 23.4 pg (25.7-33.7); MCHC 31.5 g/dl (32.0-36.0); MEAN CELL VOLUME 74.2 fl (80-96); MEAN PLT VOLUME 8.8 fl (7.5-11.1); MONO % 14.9 % (3.8-10.2); NEUT % 50.2 % (42.8-82.8); PLATELET COUNT 100 K/MM3 (134-434); RBC 4.31 M/mm3 (3.60-5.2); WHITE BLOOD COUNT 3.4 K/mm3 (4.0-10.0)
[2020-07-23 10:05] LABS: ALBUMIN 3.3 g/dl (3.4-5.0); BLOOD UREA NITROGEN 15.7 mg/dL (7-18); CALCIUM 8.3 mg/dL (8.5-10.1); MAGNESIUM 2.4 mg/dL (1.8-2.4)
[2020-07-23 10:08] LABS: PHOSPHOROUS 3.3 mg/dL (2.5-4.9)
[2020-07-23 10:09] LABS: CREATININE 0.6 mg/dL (0.55-1.3)
[2020-07-23 10:10] LABS: BILIRUBIN,TOTAL 0.5 mg/dL (0.2-1); TOT PROT 6.2 g/dl (6.4-8.2)
[2020-07-23 10:12] LABS: POTASSIUM 3.8 mmol/L (3.5-5.1)
[2020-07-23 11:21] LABS: ANISOCYTOSIS 2+; MACROCYTOSIS 0; PLATELET ESTIMATE DECREASED
[2020-07-24] MEDS: diazePAM 5 MG TABLET PO SCH ×2 (05:15→13:46)
[2020-07-24 09:21] LABS: BASO % 0.4 % (0-2.0); HEMATOCRIT 31.8 % (32.4-45.2); HEMOGLOBIN 10.1 GM/dL (10.7-15.3); LYMPH % 41.5 % (8-40); MCH 23.6 pg (25.7-33.7); MCHC 31.8 g/dl (32.0-36.0); MEAN PLT VOLUME 8.4 fl (7.5-11.1); MONO % 14.3 % (3.8-10.2); NEUT % 43.8 % (42.8-82.8); PLATELET COUNT 115 K/MM3 (134-434); RDW 25.7 % (11.6-15.6); WHITE BLOOD COUNT 3.9 K/mm3 (4.0-10.0)
[2020-07-24 09:49] LABS: POTASSIUM 3.7 mmol/L (3.5-5.1)
[2020-07-24 10:00] LABS: ALBUMIN 3.4 g/dl (3.4-5.0); CALCIUM 8.6 mg/dL (8.5-10.1)
[2020-07-24 10:01] LABS: BLOOD UREA NITROGEN 21.4 mg/dL (7-18); MAGNESIUM 2.4 mg/dL (1.8-2.4)
[2020-07-24 10:03] LABS: CREATININE 0.5 mg/dL (0.55-1.3)
[2020-07-24 10:05] LABS: BILIRUBIN,TOTAL 0.7 mg/dL (0.2-1); TOT PROT 6.3 g/dl (6.4-8.2)
[2020-07-24 13:22] VITALS: BP 112/68; PULSE 71; TEMP 97.8
== END 2020-07-24 15:54 | disposition home or self-care (01) | DRG 816 ==
LOC: JER 23:34 → JERBED 07-20 04:48 → J6S 07-20 23:34
PROVIDERS: ADMIT Internal Medicine; ATTEND Student in an Organized Health Care Education/Training Program
DX: T51.2X4A Toxic effect of 2-Propanol, undetermined, initial encounter (principal); R47.01 Aphasia; R74.01 Elevation of levels of liver transaminase levels; D64.9 Anemia, unspecified; K21.9 Gastro-esophageal reflux disease without esophagitis; E87.6 Hypokalemia; R74.8 Abnormal levels of other serum enzymes; N20.0 Calculus of kidney; D61.818 Other pancytopenia; S36.119A Unspecified injury of liver, initial encounter; G92 Toxic encephalopathy; D69.6 Thrombocytopenia, unspecified; E87.0 Hyperosmolality and hypernatremia; R16.1 Splenomegaly, not elsewhere classified; E72.20 Disorder of urea cycle metabolism, unspecified; N17.9 Acute kidney failure, unspecified; Z88.0 Allergy status to penicillin
CPT/HCPCS: 36415; 70450-TC; 71045-TC-FY; 74176-TC; 74181-TC; 76700-TC; 80053; 80307; 81003; 82010; 82103; 82140; 82390; 82436; 82525; 82550; 82565; 82570; 82607; 82693; 82728; 82746; 82803; 82962; 83516; 83540; 83550; 83605; 83735; 83930; 84100; 84133; 84300; 84443; 84484; 84703; 85025; 85027; 85045; 85610; 85730; 86038; 86704; 86706; 86708; 87077; 87081; 87086; 87340; 87517; 87522; 93005; 93010; 99285-25; C9803; J3480; Q9967; U0003

== ENCOUNTER 2020-08-18 09:26 | Emergency (ER) | payer OTHER ==
[2020-08-18 09:40] VITALS: BP 107/63; PULSE 106; TEMP 98.2; BMI 22.8
== END 2020-08-18 10:18 | disposition home or self-care (01) ==
LOC: FER 09:26
DX: U07.1 COVID-19 (principal); R05 Cough
CPT/HCPCS: 71045-TC-FY; 99283-25

== ENCOUNTER 2020-11-14 10:00 | Emergency (ER) | payer OTHER ==
[2020-11-14 10:23] VITALS: BP 120/88; PULSE 78; TEMP 98.1; BMI 23.8
[2020-11-14] MEDS ORDERED: ACETAMINOPHEN 1000 MG/100 ML VIAL (NON FORMULARY) IVPB ONE (10:30)
[2020-11-14] MEDS ORDERED: SODIUM CHLORIDE 0.9% 500 ML INFUS.BAG IV ONE (10:31)
[2020-11-14] MEDS ORDERED: ACETAMINOPHEN INJECTION 100 ML IVPB ONE (10:42)
[2020-11-14] MEDS ORDERED: ACETAMINOPHEN 325 MG TABLET (FP) PO ONE (10:43)
[2020-11-14] MEDS ORDERED: ACETAMINOPHEN 325 MG TABLET (FP) ONE (11:18)
[2020-11-14 11:31] LABS: BASO % 1.6 % (0-2.0); EOS % 0.4 % (0-4.5); HEMATOCRIT 25.1 % (32.4-45.2); HEMOGLOBIN 8.3 GM/dl (10.7-15.3); LYMPH % 23.2 % (8-40); MCH 28.3 pg (25.7-33.7); MCHC 32.8 g/dl (32.0-36.0); MEAN CELL VOLUME 86.3 fl (80-96); MEAN PLT VOLUME 7.7 fl (7.5-11.1); MONO % 8.2 % (3.8-10.2); NEUT % 66.6 % (42.8-82.8); PLATELET COUNT 105 10^3/uL (134-434); RBC 2.91 M/mm3 (3.60-5.2); RDW 28.8 % (11.6-15.6); WHITE BLOOD COUNT 2.8 K/mm3 (4.0-10.8)
[2020-11-14 11:32] LABS: ADD RBC MORPHOLOGY YES
[2020-11-14 11:35] LABS: CALCIUM 8.5 mg/dl (8.5-10); CREATININE 0.7 mg/dl (0.55-1.3)
[2020-11-14] MEDS ORDERED: FAMOTIDINE 20 MG TABLET PO ONE (12:11)
[2020-11-14] MEDS ORDERED: FAMOTIDINE 20 MG TABLET ONE (12:17)
[2020-11-14 12:45] LABS: ANISOCYTOSIS 3+; MACROCYTOSIS 1+; PLATELET ESTIMATE SLT DECREASE
[2020-11-14] MEDS ORDERED: IBUPROFEN 400 MG TABLET (FP) PO ONE ×2 (13:14→13:52)
== END 2020-11-14 14:05 | disposition home or self-care (01) ==
LOC: FER 10:00
PROC: 3E0333Z Introduction of Anti-inflammatory into Peripheral Vein, Percutaneous Approach (ICD-10-PCS; principal; 2020-11-14)
DX: D64.9 Anemia, unspecified (principal)
CPT/HCPCS: 36415; 80048; 80307; 84703; 85025; 93005; 99284-25